=== PATIENT | male | born 1955 | race Caucasian/White ===

== ENCOUNTER 2022-07-28 07:29 | Day surgery (SDC) | payer MEDICARE, OTHER ==
[2022-07-28] MEDS ORDERED: Lactated Ringers 1,000 ML IV SCH (08:00)
[2022-07-28] MEDS ORDERED: Midazolam 1 MG/ML 2 ML SDV ONE (08:08)
[2022-07-28] MEDS ORDERED: fentaNYL 50 MCG/ML SDV ONE (08:08)
[2022-07-28] MEDS ORDERED: Propofol 200 MG/20 ML SDV ONE (08:08)
== END 2022-07-28 10:30 | disposition home or self-care (01) ==
LOC: JP.SDS 07:29
PROVIDERS: ATTEND Family Medicine
DX: Z12.11 Encounter for screening for malignant neoplasm of colon (principal); I10 Essential (primary) hypertension; E78.5 Hyperlipidemia, unspecified; E03.9 Hypothyroidism, unspecified; Z88.5 Allergy status to narcotic agent; Z80.0 Family history of malignant neoplasm of digestive organs; Z79.899 Other long term (current) drug therapy
CPT/HCPCS: G0105; J2250; J2704; J3010; J7120

== ENCOUNTER 2025-05-03 08:57 | Emergency (ER) | payer MEDICARE, OTHER ==
[2025-05-03] MEDS ORDERED: Na Phos,M-B/Na Phos,DI-B 60 ML, Mineral Oil 50 ML, Docusate Sodium 400 MG, Magnesium Ci... RECTAL ONE (09:47)
[2025-05-03] MEDS: Na Phos,M-B/Na Phos,DI-B 60 ML, Mineral Oil 50 ML, Docusate Sodium 400 MG, Magnesium Ci... RECTAL ONE (10:17)
== END 2025-05-03 11:07 | disposition home or self-care (01) ==
LOC: JP.ED 08:57
DX: K59.00 Constipation, unspecified (principal); E78.00 Pure hypercholesterolemia, unspecified; I10 Essential (primary) hypertension; E03.9 Hypothyroidism, unspecified; Z87.891 Personal history of nicotine dependence; Z88.5 Allergy status to narcotic agent; Z79.890 Hormone replacement therapy; Z79.899 Other long term (current) drug therapy; Z79.85 Long-term (current) use of injectable non-insulin antidiabetic drugs
CPT/HCPCS: 99283; A9270